=== PATIENT | male | born 1940 | race Caucasian/White ===

== ENCOUNTER → 2020-06-19 | Outpatient (CLI) | payer MEDICARE, BC ==
[2016-10-11 10:11] VITALS: BP 170/81
[~2020-06-19] MED LIST: ALBU0.63 NEB; ALBU2.5V8 INH; AMIO200T4 PO; AMLO10TA8 PO; APIX5TAB3 PO; ATOR40TA59 PO; CARV3.1230 PO; FISH1CAP PO; GLIM4TAB8 PO; HYDR100T24 PO; ISOS30TA4 PO; LACT1CAP6 PO; LANS15CA78 PO; LINA5TAB4 PO; LOSA50TA86 PO; MELA3TAB4 PO; METO5TAB4 PO; NITR0.4T24 SL; SOTA80TA48 PO; TAMS0.4C2 PO
== END | disposition home or self-care (01) ==
LOC: LAB 10:00
PROVIDERS: ATTEND Registered Nurse
DX: Z01.812 Encounter for preprocedural laboratory examination (principal); Z20.828 Contact with and (suspected) exposure to other viral communicable diseases; D64.9 Anemia, unspecified
CPT/HCPCS: U0003-CS

== ENCOUNTER → 2020-06-23 | Day surgery (SDC) | payer MEDICARE, BC ==
[~2020-06-23] MED LIST changes: +IPRATRPIUM/ALBUTEROL 0.5/2.5MG 3 ML NEBU. NEB PRN; +IV RINGERS SOLUTION,LACTATED 1,000 ML IV SCH; +KETAMINE HCL IN NACL, ISO-OSM 50 MG/5 ML SYRINGE ONE; +MIDAZOLAM HCL PF 2 MG/2 ML VIAL. IV ONE; +PROPOFOL 10,000 MCG/ML (20ML) VIAL IV ONE
[2020-06-23 10:33] VITALS: BP 135/58
== END | disposition home or self-care (01) ==
LOC: SURG 07:58
PROVIDERS: ATTEND Emergency Medicine
DX: D50.9 Iron deficiency anemia, unspecified (principal); I48.91 Unspecified atrial fibrillation; K57.30 Diverticulosis of large intestine without perforation or abscess without bleeding; E78.00 Pure hypercholesterolemia, unspecified; I12.9 Hypertensive chronic kidney disease with stage 1 through stage 4 chronic kidney disease, or unspecified chronic kidney disease; N18.4 Chronic kidney disease, stage 4 (severe); M19.90 Unspecified osteoarthritis, unspecified site; Z79.899 Other long term (current) drug therapy; Z88.8 Allergy status to other drugs, medicaments and biological substances; Z87.891 Personal history of nicotine dependence
CPT/HCPCS: 45378; 82947; J2704; J7120

== ENCOUNTER 2020-09-25 14:31 | Emergency (ER) | payer MEDICARE, BC ==
[~2020-09-25] VITALS: Ht 163.8 cm; Wt 92.7 kg
[~2020-09-25 14:31] MED LIST changes: -AMIO200T4 PO; +AMIO200T6 PO; +AMLO-187 PO; -AMLO10TA8 PO; -IPRATRPIUM/ALBUTEROL 0.5/2.5MG 3 ML NEBU. NEB PRN; -IV RINGERS SOLUTION,LACTATED 1,000 ML IV SCH; -KETAMINE HCL IN NACL, ISO-OSM 50 MG/5 ML SYRINGE ONE; -MIDAZOLAM HCL PF 2 MG/2 ML VIAL. IV ONE; -PROPOFOL 10,000 MCG/ML (20ML) VIAL IV ONE
--- NOTE | 2020-09-25 15:01 | PHYS DOC ---
Past History Past Medical History: A-Fib, Diabetes (JOSHUA GARCIA APRN) Past Surgical History: Pacemaker (JOSHUA GARCIA APRN) Alcohol Use: None (JOSHUA GARCIA APRN) Adult General Chief Complaint Chief Complaint: LACERATION/AVULSION HPI HPI Patient is a 80 year old male who presents with presents to the emergency department today complaining of a fall approximately 2 hours prior to arrival, patient states he hit his head on the left side on a kitchen chair, patient denies loss of consciousness, patient states that he was trying to weigh himself and his leg gave out on him when he was stepping up on the scale, patient is adamant that he did not become dizzy, he did not lose consciousness, he did not have any type of near syncopal episode or syncopal episode. Patient also states that yesterday evening while weighing himself he lacerated his left pinky toe on his scale, but it did not bleed. Patient states that when he fell off his scale 2 hours ago prior to arrival that he really lacerated his left pinky toe and it bled this time. Patient states that he cannot feel his feet because of diabetic neuropathy, patient states he is a type II diabetic. Patient also reports that he is worried about toe infection because he had his right middle toe removed related to a diabetic infection. Patient states he has a history of hypertension, diabetes type 2, high cholesterol, atrial fibrillation, and stage IV kidney disease. Patient states that 5 years ago he had a pacemaker put in but is not sure what type, had his gallbladder removed greater than 10 years ago, had a two-vessel open heart bypass in 1994, and his right middle toe removed 3 years ago. Patient denies nasal congestion, cough, shortness of breath, chest pains, chest palpitations, fever, chills, abdominal pains, nausea, vomiting, diarrhea, or constipation. Patient denies any rashes of the skin, denies headaches, focal weaknesses, sensory changes, swelling of his glands. Patient denies any COVID-19 symptoms, patient does not wish to be tested today for the COVID-19 virus. Patient denies any aches or pains. (JOSHUA GARCIA APRN) Review of Systems Review of Systems Constitutional: Denies fever or chills Eyes: Denies change in visual acuity, redness, or eye pain HENT: Denies nasal congestion or sore throat Respiratory: Denies cough or shortness of breath Cardiovascular: No additional information not addressed in HPI GI: Denies abdominal pain, nausea, vomiting, bloody stools or diarrhea : Denies dysuria or hematuria Musculoskeletal: Denies back pain or joint pain Integument: Denies rash or skin lesions complains of laceration to left pinky toe and abrasion to the left ear after hitting head from a fall approximately 2 hours prior to arrival, patient denies any pain. Neurologic: Denies headache, focal weakness or sensory changes Endocrine: Denies polyuria or polydipsia All other systems were reviewed and found to be within normal limits, except as documented in this note. (JOSHUA GARCIA APRN) Current Medications Current Medications Medication history reviewed with patient against emergency departments charts, patient gave verbal confirmation that all medications charted in the EMR are correct. (JOSHUA GARCIA APRN) Allergies Allergies Allergies Coded Allergies Type Severity Reaction Last Updated Verified carbamazepine Allergy Intermediate Rash 09/25/20 Yes clonidine Allergy Intermediate Rash 09/25/20 Yes I S O L A T I O N *CONTACT* Allergy Unknown 06/23/20 Yes (JOSHUA GARCIA APRN) Physical Exam Physical Exam Constitutional: Well developed, well nourished, no acute distress, non-toxic appearance. HENT: Normocephalic, atraumatic, bilateral external ears normal, oropharynx moist, no oral exudates, nose normal. Eyes: PERRLA, EOMI, conjunctiva normal, no discharge. 4 mm. Neck: Normal range of motion, no tenderness, supple, no stridor. Cardiovascular:Heart rate regular rhythm, no murmur Lungs & Thorax: Bilateral breath sounds clear to auscultation Abdomen: Bowel sounds normal, soft, no tenderness, no masses, no pulsatile masses. Skin: Warm, dry, no erythema, no rash. There is a 2 cm laceration to the left pinky toe full-thickness, flexor tendon visualized, no damage noted to flexor tendon, patient has full AROM/PROM of left pinky toe, bleeding controlled with scant oozing, small approximately 2 mm abrasion to the pinna of the left ear without bleeding or infectious process noted, patient cannot feel his feet related to diabetic neuropathy, patient states he cannot feel the laceration of his left pinky toe. Back: No tenderness, no CVA tenderness. Extremities: No tenderness, no cyanosis, no clubbing, ROM intact, no edema. Neurologic: Alert and oriented X 3, normal motor function, normal sensory function, no focal deficits noted. Psychologic: Affect normal, judgement normal, mood normal. Musculoskeletal: No bony crepitus noted of left pinky toe, no bony crepitus or deformity noted of patient's head. (JOSHUA GARCIA APRN) Current Patient Data Vital Signs Vital Signs Date Time Temp Pulse Resp B/P (MAP) Pulse Ox O2 Delivery O2 Flow Rate FiO2 09/25/20 14:35 98.1 69 16 139/54 (82) 96 Room Air Lab Results Laboratory Tests Test 09/25/20 15:17 White Blood Count 13.6 x10^3/uL Red Blood Count 3.90 x10^6/uL Hemoglobin 11.2 g/dL Hematocrit 34.6 % Mean Corpuscular Volume 89 fL Mean Corpuscular Hemoglobin 29 pg Mean Corpuscular Hemoglobin Concent 33 g/dL Red Cell Distribution Width 15.0 % Platelet Count 371 x10^3/uL Neutrophils (%) (Auto) 68 % Lymphocytes (%) (Auto) 20 % Monocytes (%) (Auto) 9 % Eosinophils (%) (Auto) 2 % Basophils (%) (Auto) 1 % Neutrophils # (Auto) 9.2 x10^3uL Lymphocytes # (Auto) 2.7 x10^3/uL Monocytes # (Auto) 1.2 x10^3/uL Eosinophils # (Auto) 0.3 x10^3/uL Basophils # (Auto) 0.1 x10^3/uL Prothrombin Time 13.1 SEC Prothromb Time International Ratio 1.3 Activated Partial Thromboplast Time 35 SEC Sodium Level 134 mmol/L Potassium Level 3.7 mmol/L Chloride Level 99 mmol/L Carbon Dioxide Level 23 mmol/L Anion Gap 12 Blood Urea Nitrogen 84 mg/dL Creatinine 4.4 mg/dL Estimated GFR (Cockcroft-Gault) 13.0 BUN/Creatinine Ratio 19 Glucose Level 158 mg/dL Calcium Level 8.8 mg/dL Total Bilirubin 0.6 mg/dL Aspartate Amino Transf (AST/SGOT) 13 U/L Alanine Aminotransferase (ALT/SGPT) 13 U/L Alkaline Phosphatase 62 U/L Troponin I Quantitative < 0.017 ng/mL Total Protein 8.1 g/dL Albumin 3.2 g/dL Albumin/Globulin Ratio 0.7 Current Medications Medications (Trade) Dose Ordered Sig/Paco Route PRN Reason Start Time Stop Time Status Last Admin Dose Admin Diphtheria/ Pertussis/Tetanus Vacc (ADACEL TDap SYRINGE) 0.5 ml ONCE ONCE VAX IM 09/25/20 15:15 09/25/20 15:16 DC 09/25/20 15:52 Cephalexin HCl (Keflex) 500 mg 1X ONCE PO 09/25/20 17:15 09/25/20 17:29 DC 09/25/20 17:15 Bacitracin (Bacitracin Topical Pkt) 2 pkt 1X ONCE TP 09/25/20 17:15 09/25/20 17:29 DC 09/25/20 17:15 (JOSHUA GARCIA APRN) EKG EKG EKG performed at 1545 by house respiratory therapist, heart rate is 63 bpm shows an accelerated junctional rhythm without ectopy, there is no IN interval related to the junctional rhythm, QTc interval 0.520, no STEMI noted, no coronary syndrome noted, questionable ischemic changes with flipped T wave in V4 V2 and V3, when compared to previous x-ray in 2016 which showed normal sinus rhythm, EKG interpreted by ED attending . (JOSHUA GARCIA APRN) Radiology/Procedures Radiology/Procedures REASON: NEAR SYNCOPE, FALL, RT SIDE HEAD CONTUSION PROCEDURE: CT HEAD AND CERVICAL SPINE WO CT Head W/O Contrast: History: Reason: NEAR SYNCOPE, FALL, RT SIDE HEAD CONTUSION / Spl. Instructions: / History: Comparison: none Axial images were obtained without contrast. There is a small left-sided subdural hematoma over the left cerebral hemisphere that measures greatest depth of 5 mm and is slightly hypoattenuating the martinez matter. There is a tiny right subdural hematoma over the right frontal lobe posteriorly that measures 3 mm in thickness. There is 2.5 mm htvj-ot-elwbd midline shift. There is moderate diffuse atrophy. There is no hydrocephalus. There is no focal loss of martinez-white matter distinction to suggest acute ischemia, i.e. stroke. Impression: Small bilateral subdural hematomas with mild to 0.5 mm sfpb-ia-apuxk midline shift. These appear subacute to chronic. End impression CT C-Spine without contrast: Clinical History: Reason: NEAR SYNCOPE, FALL, RT SIDE HEAD CONTUSION / Spl. Instructions: / History: Technique: Axial helical images of the cervical spine were obtained without contrast, axial coronal and sagittal reconstruction was performed. Findings: There is no loss of vertebral body stature. There is no prevertebral soft tissue swelling. The vertebral bodies are well aligned. There is straightening of the normal cervical lordosis which can be positional or could be chronic. The C1-C2 relationship is normal. The visualized osseous structures appear normal. Evaluation of the central canal is limited without contrast. There is multiple posterior disc bulges resulting in flattening of the thecal sac. There does not appear to be gross flattening of the cervical cord. There is moderate narrowing of multiple neuroforamen. Impression: No acute findings. Clinical correlation suggested. See CT head without contrast. PQRS Compliance Statement: One or more of the following individualized dose reduction techniques were utilized for this examination: 1. Automated exposure control 2. Adjustment of the mA and/or kV according to patient size 3. Use of iterative reconstruction technique Electronically signed by: Raymond Marx III, MD (09/25/2020 3:58 PM) [facility] DICTATED AND SIGNED BY: RAYMOND MARX III, MD DATE: 09/25/20 155 CC: JOSHUA GARCIA APRN; ANTON MEYER; BENEDICT FLORES DO ~MTH0 0 REASON: NEAR SYNCOPE, FALL PROCEDURE: PORTABLE CHEST 1V EXAM: Chest, single view. HISTORY: Syncope. Fall. COMPARISON: None. FINDINGS: A frontal view of the chest is obtained. There is no infiltrate, pleural effusion or pneumothorax. There is a prominent cardiac silhouette likely due to portable technique. There is evidence of prior CABG. There is a cardiac pacemaker with leads in expected position. IMPRESSION: No acute pulmonary finding. Electronically signed by: Cheyenne Hughes MD (09/25/2020 3:35 PM) [facility] DICTATED AND SIGNED BY: CHEYENNE HUGHES MD DATE: 09/25/20 1535 CC: JOSHUA GARCIA APRN; ANTON MEYER; BENEDICT FLORES DO ~MTH0 0 (JOSHUA GARCIA APRN) Heart Score Risk Factors: Risk Factors: DM, Current or recent (<one month) smoker, HTN, HLP, family history of CAD, obesity. Risk Scores: Risk Factors: DM, Current or recent (<one month) smoker, HTN, HLP, family history of CAD, obesity. (JOSHUA GARCIA APRN) Course & Med Decision Making Course & Med Decision Making Pertinent Labs and Imaging studies reviewed. (See chart for details) 80-year-old male, vital signs stable, present emergency department after a fall hitting his head on the left side because of an abrasion of the left ear, patient also presented with a laceration of the left pinky toe plantar aspect. It was unclear whether the patient had a syncopal episode, patient denied loss of consciousness, a CAT scan of the head and C-spine was performed read negative by house radiologist, related to the patient's history of A. fib, an EKG was performed and PA lateral chest which were read negative per house radiologist. EKG had changes noted with flipped T waves, patient states he is aware of these changes, patient states that he has not been to this hospital in several years and has had an advancement of his cardiac problems which he is followed very closely with his physicians at [facility]. Patient's labs were concerning for acute on chronic kidney injury, patient states that he is aware of his stage IV kidney problems stating that he is also followed very closely for his kidney disease. The patient's laceration was repaired, related to the patient's history of type 2 diabetes, prophylaxis treatment of p.o. Keflex was initiated in the ED, patient was written a prescription for Keflex 4 times daily for 10 days. The patient's abnormal labs and abnormal EKG was discussed with the patient and admission to the hospital for further evaluation was recommended, patient refused inpatient recommendations, patient states that he is well aware of his heart problems and kidney problems, patient iterated that he is not having any shortness of breath, and does not have any chest pains, and knows when his kidneys are giving him problems. Patient states it has been several years since he has been to this hospital, patient states that he usually goes to [facility] where they have cared for him for the last 4 to 5 years, patient continues to deny need for admission to the hospital. Patient states that he will call his doctor on Monday and be seen Monday for reevaluation of his toe laceration, and evaluation of his kidney disease. It is of my opinion that the patient is of sound mind alert and oriented and able to make his own educated medical decisions, a AGAINST MEDICAL ADVICE form was filled out, the patient signed this form, patient was discharged home with p.o. antibiotics, strict return to emergency department precautions, patient had no further questions or concerns, patient discharged home AGAINST ME DICAL ADVICE without incident. (JOSHUA GARCIA APRN) Dragon Disclaimer Dragon Disclaimer This electronic medical record was generated, in whole or in part, using a voice recognition dictation system. (JOSHUA GARCIA APRN) Departure Departure: Impression: Primary Impression: Fall Additional Impressions: Laceration of fifth toe, left Suture of skin wound EKG, abnormal Ytpuv-vm-xraqtgm kidney injury Left against medical advice Abrasion of left ear Disposition: 01 DC HOME SELF CARE/HOMELESS Condition: IMPROVED Referrals: ANTON MEYER (PCP) Patient Instructions: Discharge Against Medical Advice, Sutured Wound Care Additional Instructions: Please take antibiotics as prescribed, I have given you first dose today in the emergency department, we have brought your tetanus immunization up-to-date today in the ER, see your doctor on Monday to have your left toe laceration reevaluated and close follow-up related to your type 2 diabetes with peripheral neuropathy. We have discussed admission to the hospital because of EKG changes and BUN and creatinine levels concerning for acute on chronic kidney injury, we have discussed both the risks and benefits of staying for admission to the hospital versus leaving to home AGAINST MEDICAL ADVICE, you have chosen to refuse admission and leave AGAINST MEDICAL ADVICE. I encourage you to follow-up with your doctor this Monday to review your EKG and BUN and creatinine levels. Please return to the emergency department for any worsening symptoms, chest pains, dizziness, passing out spells, or falls, prior to your reevaluation by your primary care doctor. Have your stitches removed in approximately 10 days, perform daily wound care on the abrasion of your left ear and the laceration repair of your left toe. Patient does not wish to proceed with medical care recommended by ( ). Patient given information related to possible complications, up to and including , which could occur as a result of leaving the hospital at this time. Patient verbalizes understa nding of risks involved due to leaving against medical advice. Patient has singned AMA form. EMERGENCY DEPARTMENT GENERAL DISCHARGE INSTRUCTIONS Thank you for coming to [facility] (ED) today and trusting us with you care. We trust that you had a positivie experience in our Emergency Department. If you wish to speak to the department management, you may call the director at [phone]. YOUR FOLLOW UP INSTRUCTIONS ARE FOLLOWS: 1. Do you have a private Doctor? If you do not have a private doctor, please ask for a resource list of physicians or clinics that may be able to assist you with follow up care. 2. The Emergency Physician has interpreted your x-rays. The X-Ray specialist will also review them. If there is a change in the findings, you will be notified in 48 hours when at all possible. 3. A lab test or culture has been done, your results will be reviewed and you will be notified if you need a change in treatment. ADDITIONAL INSTRUCTIONS AND INFORMATION: 1. Your care today has been supervised by a physician who is specially trained in emergency care. Many problems require more than one evaluation for a complete diagnosis and treatment. We recommend that you schedule your follow up appointment as recommended to ensure complete treatment of you illness or injury. If you are unable to obtain follow up care and continue to have a problem, or if your condition worsens, we recommend that you return to the ED. 2. We are not able to safely determine your condition over the phone nor are we able to give sound medical advice over the phone. For these safety reasons, if you call for medical advice we will ask you to come to the ED for further evaluation. 3. If you have any questions regarding these discharge instructions please call the ED at [phone]. SAFETY INFORMATION: In the interest of safety, wellness, and injury prevention; we encourage you to wear your sealbelt, if you smoke; quite smoking, and we encourage family to use a protective helmet for bicycling and other sporting events that present an increased risk for head injury. IF YOUR SYMPTOMS WORSEN OR NEW SYMPTOMS DEVELOP, OR YOU HAVE CONCERNS ABOUT YOUR CONDITION; OR IF YOUR CONDITION WORSENS WHILE YOU ARE WAITING FOR YOUR FOLLOW UP A PPOINTMENT; EITHER CONTACT YOUR PRIMARY CARE DOCTOR, THE PHYSICIAN WHOSE NAME AND NUMBER YOU WERE GIVEN, OR RETURN TO THE ED IMMEDIATELY. Scripts Cephalexin (KEFLEX) 500 Mg Capsule 500 MG PO QID for INFECTION PREVENTION for 10 Days, #40 TAB 0 Refills Prov: JOSHUA GARCIA ROWAN 09/25/20 Bacitracin/Polymyxin B Sulfate (POLYSPORIN OINTMENT) 28.3 Gm Oint...g. 28.3 GM TP TID for WOUND AND LACERATION CARE, #1 MISC 0 Refills Prov: JOSHUA GARCIA ROWAN 09/25/20 Attending Co-Sign Attending Co-Sign I have reviewed the non-physician practitioner's documentation, personally taken the patient's history, performed an exam and agree with the physical findings, clinical impression, and management plan. (BENEDICT FLORES DO) Attending Co-Sign The patient was seen and interviewed as well as examined at the bedside. The chart was reviewed. The case was discussed. Agree with the plan of care. (JOSHUA GARCIA APRN) Laceration Repair Lac Repair Indication: Laceration of the left pinky toe plantar aspect Procedure: The patient was placed in the appropriate position and anesthesia around the was anesthetized with 4 cc 1% lidocaine without epinephrine. The area was then cleansed with 240 cc pressurized normal saline, explored for foreign bodies, there were no foreign bodies noted, flexor tendon closely examined was without damage. The laceration was closed with 1 internal 4-0 Vicryl interrupted suture, then closed with 10 interrupted sutures using 4-0 nylon. The wound area was then dressed with Polysporin and a bandage by ED nursing staff. Total repaired wound length: Length of laceration was 2 cm Other Items: [OTHER ITEMS] The patient tolerated the procedure well. Complications: No complications noted (JOSHUA GARCIA APRN) Problem Qualifiers Primary Impression: Fall Encounter type: initial encounter Qualified Codes: W19.XXXA - Unspecified fall, initial encounter Additional Impressions: Laceration of fifth toe, left Encounter type: initial encounter Qualified Codes: S91.115A - Laceration without foreign body of left lesser toe(s) without damage to nail, initial encounter Timkv-tc-qoyziba kidney injury Acute renal failure type: unspecified Chronic kidney disease stage: stage 4 (severe) Qualified Codes: N17.9 - Acute kidney failure, unspecified; N18.4 - Chronic kidney disease, stage 4 (severe) Abrasion of left ear Encounter type: initial encounter Qualified Codes: S00.412A - Abrasion of left ear, initial encounter JOSHUA GARCIA APRN Sep 25, 2020 15:01 BENEDICT FLORES DO Sep 25, 2020 15:58
[2020-09-25] MEDS ORDERED: DIPH,PERTUSS(ACELL),TET VAC/PF 0.5 ML SYRINGE. VAX IM ONE (15:15)
--- NOTE | 2020-09-25 15:38 | RAD ---
EXAM: Chest, single view. HISTORY: Syncope. Fall. COMPARISON: None. FINDINGS: A frontal view of the chest is obtained. There is no infiltrate, pleural effusion or pneumothorax. There is a prominent cardiac silhouette likely due to portable technique. There is evidence of prior CABG. There is a cardiac pacemaker with leads in expected position. IMPRESSION: No acute pulmonary finding. Electronically signed by: Cheyenne Hamilton MD (09/25/2020 3:35 PM) [facility]
[2020-09-25 15:41] LABS: BASO # 0.1 x10^3/uL (0.0-0.2); BASO % 1 % (0-3); EOS # 0.3 x10^3/uL (0.0-0.7); EOS % 2 % (0-3); HEMATOCRIT 34.6 % (39.0-53.0); HEMOGLOBIN 11.2 g/dL (13.0-17.5); LYMPH # 2.7 x10^3/uL (1.0-4.8); LYMPH % 20 % (24-48); MEAN CORPUSCULAR HEMOGLOBIN 29 pg (25-35); MEAN CORPUSCULAR HGB CONC 33 g/dL (31-37); MEAN CORPUSCULAR VOLUME 89 fL (79-100); MONO # 1.2 x10^3/uL (0.0-1.1); MONO % 9 % (0-9); NEUT # 9.2 x10^3uL (1.8-7.7); NEUT % 68 % (31-73); PLATELET COUNT 371 x10^3/uL (140-400); WHITE BLOOD COUNT 13.6 x10^3/uL (4.0-11.0)
[2020-09-25 15:52] LABS: CALCIUM 8.8 mg/dL (8.5-10.1); CREATININE 4.4 mg/dL (0.7-1.3); POTASSIUM 3.7 mmol/L (3.5-5.1)
[2020-09-25 15:58] LABS: ALBUMIN 3.2 g/dL (3.4-5.0); ALBUMIN/GLOBULIN RATIO 0.7 (1.0-1.7); TOTAL BILIRUBIN 0.6 mg/dL (0.2-1.0); TOTAL PROTEIN 8.1 g/dL (6.4-8.2)
--- NOTE | 2020-09-25 16:01 | RAD ---
CT Head W/O Contrast: History: Reason: NEAR SYNCOPE, FALL, RT SIDE HEAD CONTUSION / Spl. Instructions: / History: Comparison: none Axial images were obtained without contrast. There is a small left-sided subdural hematoma over the left cerebral hemisphere that measures greatest depth of 5 mm and is slightly hypoattenuating the martinez matter. There is a tiny right subdural hematoma over the right frontal lobe posteriorly that measures 3 mm in thickness. There is 2.5 mm icmt-ma-sgfzf midline shift. There is moderate diffuse atrophy. There is no hydrocephalus. There is no focal loss of martinez-white matter distinction to suggest acute ischemia, i.e. stroke. Impression: Small bilateral subdural hematomas with mild to 0.5 mm yyvi-in-tmfya midline shift. These appear subacute to chronic. End impression CT C-Spine without contrast: Clinical History: Reason: NEAR SYNCOPE, FALL, RT SIDE HEAD CONTUSION / Spl. Instructions: / History: Technique: Axial helical images of the cervical spine were obtained without contrast, axial coronal and sagittal reconstruction was performed. Findings: There is no loss of vertebral body stature. There is no prevertebral soft tissue swelling. The vertebral bodies are well aligned. There is straightening of the normal cervical lordosis which can be positional or could be chronic. The C1-C2 relationship is normal. The visualized osseous structures appear normal. Evaluation of the central canal is limited without contrast. There is multiple posterior disc bulges resulting in flattening of the thecal sac. There does not appear to be gross flattening of the cervical cord. There is moderate narrowing of multiple neuroforamen. Impression: No acute findings. Clinical correlation suggested. See CT head without contrast. RS Compliance Statement: One or more of the following individualized dose reduction techniques were utilized for this examination: 1. Automated exposure control 2. Adjustment of the mA and/or kV according to patient size 3. Use of iterative reconstruction technique Electronically signed by: Jairo Lou III, MD (09/25/2020 3:58 PM) [facility]
--- NOTE | 2020-09-25 16:04 | EKG ---
[address] [address] Test Date: 2020-09-25 Test Time: 15:45:35 Pat Name: NICO ETIENNE Department: Room: Gender: M Customer Retention Specialist: GEORGE : 1940 Requested By: JOSHUA GARCIA Order Number: [id number] Reading MD: Zeferino Kaye Measurements Intervals [place] Rate: 63 P: MN: QRS: -7 QRSD: 80 T: 230 QT: 504 QTc: 520 Interpretive Statements ATRIAL PACED RHYHTM PROLONGED [place] INTERVAL QRS(T) CONTOUR ABNORMALITY CONSISTENT WITH INFERIOR INFARCT AGE UNDETERMINED ST & T ABNORMALITY, CONSIDER ANTEROLATERAL ISCHEMIA OR LEFT VENTRICULAR STRAIN ABNORMAL ECG Electronically Signed On 09-29-2020 10:57:44 PURCHASING INTERN by Zeferino Kaye
[2020-09-25] MEDS ORDERED: BACITRACIN ZINC TOPICAL OINT PACKET. TP ONE (17:15)
[2020-09-25] MEDS ORDERED: CEPHALEXIN 250 MG CAPSULE PO ONE (17:15)
[2020-09-25 17:29] VITALS: BP 160/81
[2020-09-25] MEDS ORDERED: BACI28.34 TP (17:30)
[2020-09-25] MEDS ORDERED: CEPH-264 PO (17:30)
== END 2020-09-25 17:49 | disposition home or self-care (01) ==
LOC: ER 14:31
DX: S91.115A Laceration without foreign body of left lesser toe(s) without damage to nail, initial encounter (principal); S00.412A Abrasion of left ear, initial encounter; N18.4 Chronic kidney disease, stage 4 (severe); N17.9 Acute kidney failure, unspecified; E11.22 Type 2 diabetes mellitus with diabetic chronic kidney disease; I48.20 Chronic atrial fibrillation, unspecified; Z95.0 Presence of cardiac pacemaker; Z88.8 Allergy status to other drugs, medicaments and biological substances; W18.09XA Striking against other object with subsequent fall, initial encounter; Y93.89 Activity, other specified; Y92.89 Other specified places as the place of occurrence of the external cause; Y99.8 Other external cause status
CPT/HCPCS: 12011; 36415; 70450; 71045; 72125; 80053; 84484; 85025; 85610; 85730; 90471; 90715; 93005; 99285

== ENCOUNTER → 2021-05-17 | Outpatient (CLI) | payer MEDICARE, BC ==
[~2021-05-17] MED LIST changes: +BACI28.34 TP; +CEPH-264 PO; -ISOS30TA4 PO; +ISOS30TA68 PO; +LANS15CA73 PO; -LANS15CA78 PO
--- NOTE | 2021-05-18 07:44 | RAD ---
EXAMINATION: Chest radiograph. VIEWS: Single view COMPARISON: 09/25/2020 INDICATION:80 years, Male, cough. FINDINGS: Stable cardiomediastinal silhouette. Median sternotomy wires. Left chest wall pacemaker device remain s unchanged. Scattered calcified granulomas in both lungs. No focal consolidation. No pleural effusio n or pneumothorax. No acute osseous process. IMPRESSION: No acute cardiopulmonary process. Electronically signed by: Juan Alberto Saleh MD (05/18/2021 7:41 AM) [id number]
== END ==
LOC: RAD 13:59
PROVIDERS: ATTEND Internal Medicine Nephrology
DX: N18.4 Chronic kidney disease, stage 4 (severe) (principal)
CPT/HCPCS: 71045

== ENCOUNTER 2021-06-01 08:32 | Emergency (ER) | payer MEDICARE ==
[~2021-06-01] VITALS: Ht 163.8 cm; Wt 94.7 kg
[2021-06-01] MEDS ORDERED: DEXTROSE 50% 25 GM / 50ML DISP.SYRIN. IV ONE ×2 (08:34→08:40)
[2021-06-01] MEDS ORDERED: DEXTROSE ORAL GEL 15 GM TUBE. ONE (08:35)
[2021-06-01 09:06] LABS: BASO # 0.1 x10^3/uL (0.0-0.2); BASO % 1 % (0-3); EOS # 0.1 x10^3/uL (0.0-0.7); EOS % 0 % (0-3); HEMATOCRIT 32.9 % (39.0-53.0); HEMOGLOBIN 10.8 g/dL (13.0-17.5); LYMPH # 1.3 x10^3/uL (1.0-4.8); LYMPH % 6 % (24-48); MEAN CORPUSCULAR HEMOGLOBIN 31 pg (25-35); MEAN CORPUSCULAR HGB CONC 33 g/dL (31-37); MEAN CORPUSCULAR VOLUME 93 fL (79-100); MONO # 2.2 x10^3/uL (0.0-1.1); MONO % 11 % (0-9); NEUT # 17.1 x10^3uL (1.8-7.7); NEUT % 82 % (31-73); PLATELET COUNT 195 x10^3/uL (140-400); RED BLOOD COUNT 3.53 x10^6/uL (4.30-5.70); RED CELL DISTRIBUTION WIDTH 14.9 % (11.5-14.5); WHITE BLOOD COUNT 20.7 x10^3/uL (4.0-11.0)
[2021-06-01 09:08] LABS: CALCIUM 8.3 mg/dL (8.5-10.1); CREATININE 5.6 mg/dL (0.7-1.3); GFR 9.8
--- NOTE | 2021-06-01 09:10 | PHYS DOC ---
Past History Past Medical History: A-Fib, Diabetes Past Surgical History: Pacemaker Alcohol Use: None General Adult EDM: Chief Complaint: BLOOD SUGAR PROBLEM HPI: HPI: Patient is a 80-year-old male coming in via EMS for hypoglycemia. EMS states that family found patient confused, and on arrival his blood glucose level was 40. 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 Patient's son states that he was called by the patient's around 730 that he was moaning and noncoherent. Son states that he gave him 8 of his Novolin last night, regularly gets 10 units, but was worried it was too much. Patient only is solid for dinner. Has Covid vaccines. Patient says states he had a fall out of his chair 2 days ago and is seeing his chiropractor who has done x-rays and said nothing was broken. Review of Systems: Review of Systems: All other systems within normal limits except for as noted in the HPI Current Medications: Current Meds: Current Medications Medications (Trade) Dose Ordered Sig/Paco Start Time Stop Time Status Last Admin Dose Admin Dextrose (Dextrose 50%-Water Syringe) 25 gm STK-MED ONCE 06/01/21 08:34 06/01/21 08:35 DC Fentanyl Citrate (Fentanyl 2ml Vial) 100 mcg STK-MED ONCE 06/01/21 08:58 06/01/21 08:58 DC Glucose (Insta-Glucose) 15 gm STK-MED ONCE 06/01/21 08:35 06/01/21 08:35 DC Allergies: Allergies: Allergies Coded Allergies Type Severity Reaction Last Updated Verified carbamazepine Allergy Intermediate Rash 09/25/20 Yes clonidine Allergy Intermediate Rash 09/25/20 Yes I S O L A T I O N *CONTACT* Allergy Unknown 06/23/20 Yes Physical Exam: PE: Constitutional: Well developed, well nourished, no acute distress, non-toxic appearance. [] HENT: Normocephalic, atraumatic, bilateral external ears normal, nose normal. [] Eyes: PERRLA, conjunctiva normal, no discharge. [] Neck: No rigidity, supple, no stridor. [Dialysis catheter in place] Cardiovascular: Regular rate and rhythm, brisk cap refill [] Lungs & Thorax: Non labored symmetric respirations, no tachypnea or respiratory distress [] Abdomen: Soft, nondistended. Skin: Warm, dry, no erythema, no rash. [] Back: Unremarkable Extremities: No deformities, range of motion grossly intact, no lower extremity edema [] Neurologic: Alert and oriented X 3, no focal deficits noted. [] Psychologic: Affect normal, judgement normal, mood normal. [] Current Patient Data: Labs: Laboratory Tests Test 06/01/21 08:53 Glucose (Fingerstick) 223 mg/dL (70-99) H EKG: EKG: Atrial fibrillation, heart rate 60 bpm, left axis deviation, no ST elevation or depression. [] Radiology/Procedures: Radiology/Procedures: [] Heart Score: C/O Chest Pain: No HEART Score for Chest Pain: HEART Score for Chest Pain Response (Comments) Value History Slighlty/Non-Suspicious 0 ECG Nonspecific Repolarizatio 1 Age > 65 2 Risk Factors >3 Risk Factors or Hx CAD 2 Troponin < Normal Limit 0 Total 5 Risk Factors: Risk Factors: DM, Current or recent (<one month) smoker, HTN, HLP, family history of CAD, obesity. Risk Scores: Score 0 - 3: 2.5% MACE over next 6 weeks - Discharge Home Score 4 - 6: 20.3% MACE over next 6 weeks - Admit for Clinical Observation Score 7 - 10: 72.7% MACE over next 6 weeks - Early Invasive Strategies Course & Med Decision Making: Course & Med Decision Making Patient with sepsis, likely bacteremic from indwelling catheter. Patient initially requesting to go to [facility] but no beds were available. Discussed option of transferring to [place] since he will require hemodialysis. Patient and family agree to plan. Patient accepted at [facility] by Dr. Pierre. Stephanie Disclaimer: Stephanie Disclaimer: This electronic medical record was generated, in whole or in part, using a voice recognition dictation system. Departure Departure: Impression: Primary Impression: Sepsis Additional Impression: ESRD (end stage renal disease) on dialysis Disposition: 02 SHORT TERM HOSPITAL Condition: STABLE Referrals: ANTON MEYER (PCP) ARACELI ARMSTRONG MD Jun 01, 2021 09:10
[2021-06-01 09:21] LABS: ALBUMIN 2.8 g/dL (3.4-5.0); ALBUMIN/GLOBULIN RATIO 0.6 (1.0-1.7); MAGNESIUM 2.2 mg/dL (1.8-2.4); PHOSPHORUS 6.9 mg/dL (2.6-4.7); TOTAL BILIRUBIN 3.8 mg/dL (0.2-1.0); TOTAL PROTEIN 7.7 g/dL (6.4-8.2)
--- NOTE | 2021-06-01 09:35 | RAD ---
EXAM: Chest, single view. HISTORY: Congestive heart failure. COMPARISON: 05/17/2021 FINDINGS: A frontal view of the chest is obtained. There is mild infrahilar predominant interstitial prominence. There may be a trace left pleural effusion. There is a stable cardiac silhouette and evid ence of prior CABG. There is a right internal jugular dialysis catheter with the tip in the superior cavoatrial junction. There is a left cardiac pacemaker with leads in expected position. There is no p neumothorax. IMPRESSION: 1. Stable mild infrahilar predominant interstitial prominence and possible trace left pleural effusio n. There is no consolidated pneumonia. 2. Stable support lines and tubes. Electronically signed by: Cheyenne Hamilton MD (06/01/2021 9:33 AM) [id number]
[2021-06-01 09:49] LABS: % BANDS 5 % (0-9); % LYMPHS 8 % (24-48); % MONOS 10 % (0-10); % SEGS 77 % (35-66); PLT ESTIMATE ADEQUATE (ADEQUATE)
[2021-06-01] MEDS ORDERED: HYDROcodone/APAP 7.5/325MG 1 TAB TABLET PO ONE (10:30)
[2021-06-01] MEDS ORDERED: PIPERACILLIN/TAZOBACTAM 3.375 GM in IV NORMAL SALINE 50ML 50 ML IV ONE (11:00)
[2021-06-01] MEDS ORDERED: PIPERACILLIN/TAZOBACTAM 3.375 GM VIAL IV ONE (11:36)
[2021-06-01] MEDS ORDERED: IV NORMAL SALINE 50ML 50 ML ONE (11:36)
[2021-06-01] MEDS ORDERED: MORPHINE SULFATE 4 MG/ML DISP.SYRIN. IV ONE ×2 (12:45→15:00)
--- NOTE | 2021-06-01 13:57 | EKG ---
[address] [address] Test Date: 2021-06-01 Test Time: 08:37:17 Pat Name: NICO ETIENNE Department: Room: Gender: M Refuse Collector: DANA : 1940 Requested By: ARACELI ARMSTRONG Order Number: [id number] Reading MD: Measurements Intervals [place] Rate: 69 P: 211 [place]: 160 QRS: -36 QRSD: 158 T: 143 QT: 502 QTc: 540 Interpretive Statements SINUS RHYTHM ABNORMAL LEFT AXIS DEVIATION LOW LIMB LEAD VOLTAGE NON SPECIFIC INTRAVENTRICULAR BLOCK QRS(T) CONTOUR ABNORMALITY CONSISTENT WITH ANTERIOR INFARCT PROBABLY OLD CONSISTENT WITH INFEROLATERAL INFARCT AGE UNDETERMINED ABNORMAL ECG RI6.02 No previous ECG available for comparison
[2021-06-01] MEDS ORDERED: NEOMY/BACITR/POLYMYXIN OINT PACKET. TP ONE (14:15)
[2021-06-01 14:54] VITALS: BP 119/54
[2021-06-01] MEDS ORDERED: ONDANSETRON PF 4 MG/2 ML VIAL. IVP ONE (15:45)
[2021-06-01] MEDS ORDERED: MORPHINE SULFATE 4 MG/ML DISP.SYRIN. IM ONE (16:00)
== END 2021-06-01 15:59 | disposition short-term general hospital (02) ==
LOC: ER 08:32
DX: A41.9 Sepsis, unspecified organism (principal); E11.22 Type 2 diabetes mellitus with diabetic chronic kidney disease; N18.6 End stage renal disease; E11.649 Type 2 diabetes mellitus with hypoglycemia without coma; I48.91 Unspecified atrial fibrillation; Z95.0 Presence of cardiac pacemaker; Z20.822 Contact with and (suspected) exposure to COVID-19; Z99.2 Dependence on renal dialysis; Z88.8 Allergy status to other drugs, medicaments and biological substances; Z88.5 Allergy status to narcotic agent; Z91.041 Radiographic dye allergy status
CPT/HCPCS: 36415; 71045; 80053; 82947; 83605; 83735; 83880; 84100; 85007; 85025; 87015; 87040; 87077; 87186; 87205; 93005; 96365; 96372; 96375; 96376; 99285; C9803; J2270; J2405; J2543; J3010; U0003